=== PATIENT | female | born 1990 | race American Indian/Alaskan Native ===

== ENCOUNTER 2019-03-01 11:53 | Inpatient (IN) | payer OTHER ==
[2019-03-01 12:54] LABS: Bacteria,Urine 1+ /HPF (Negative); Bilirubin,Urine NEG (Negative); Blood,Urine NEG (Negative); Color,Urine Yellow (Yellow); Mucus,Urine FEW /HPF; Urobilinogen,Urine < 2.0 mg/dL (<2.0)
[2019-03-01] MEDS ORDERED: PEPCID IV NR (13:00)
[2019-03-01] MEDS ORDERED: ZOFRAN IV NR (13:00)
[2019-03-01 13:02] LABS: Amphetamine Screen,Urine PRESUMPTIVE NEGATIVE; Benzodiazepines Screen,Urine PRESUMPTIVE NEGATIVE; Cocaine Screen,Urine PRESUMPTIVE NEGATIVE; Methadone Screen,Urine PRESUMPTIVE NEGATIVE; Opiate Screen,Urine PRESUMPTIVE NEGATIVE
[2019-03-01] MEDS: LACTATED RINGERS 1,000 ML IV SCH ×2 (13:09→20:09)
[2019-03-01 13:28] LABS: Cannabinoid Screen,Urine PRESUMPTIVE POSITIVE
[2019-03-01] MEDS ORDERED: MORPHINE IV ONE ×2 (13:33→16:45)
[2019-03-01] MEDS ORDERED: MORPHINE ONE (17:06)
--- NOTE | 2019-03-01 17:09 | History and Physical Report ---
History of Present Illness Date of examination: 03/01/19 Date of admission: 03/01/19 12:22 Medications and Allergies Allergies Allergy/AdvReac Type Severity Reaction Status Date / Time No Known Allergies Allergy Verified 03/01/19 12:14 Active Meds: Active Medications Famotidine (Pepcid) 20 mg IV ONCE NR Stop: 03/01/19 18:00 Last Admin: 03/01/19 13:09 Dose: 20 mg Documented by: Lactated Ringer's (Lactated Ringers) 1,000 mls @ 125 mls/hr IV DIRECT CRISTIAN Last Admin: 03/01/19 13:09 Dose: 125 mls/hr Documented by: Ondansetron HCl (Zofran) 8 mg IV ONCE NR Stop: 03/01/19 18:00 Last Admin: 03/01/19 13:09 Dose: 8 mg Documented by: Exam - Constitutional Vitals: Temp Pulse Resp BP Pulse Ox 97.7 F 92 H 20 113/69 98 03/01/19 13:10 03/01/19 13:43 03/01/19 13:10 03/01/19 13:43 03/01/19 11:58 Results - Labs Labs: Laboratory Last Values Yellow (Yellow) 03/01/19 12:25 Clear (Clear) 03/01/19 12:25 5.0 (5.0-7.0) 03/01/19 12:25 Ur Specific [place] 1.021 (1.003-1.030) 03/01/19 12:25 30 mg/dl mg/dL (Negative) 03/01/19 12:25 Neg mg/dL (Negative) 03/01/19 12:25 80 mg/dL (Negative) 03/01/19 12:25 Neg (Negative) 03/01/19 12:25 Neg (Negative) 03/01/19 12:25 Neg (Negative) 03/01/19 12:25 < 2.0 mg/dL (<2.0) 03/01/19 12:25 Ur Leukocyte Esterase Neg (Negative) 03/01/19 12:25 1.0 /HPF (0.0-6.0) 03/01/19 12:25 2.0 /HPF (0.0-6.0) 03/01/19 12:25 U Epithel Cells (Auto) 1.0 /HPF (0-13.0) 03/01/19 12:25 1+ /HPF (Negative) 03/01/19 12:25 Few /HPF 03/01/19 12:25 Presumptive negative 03/01/19 12:25 Presumptive negative 03/01/19 12:25 Ur Barbiturates Screen Presumptive negative 03/01/19 12:25 Ur Phencyclidine Scrn Presumptive negative 03/01/19 12:25 Ur Amphetamines Screen Presumptive negative 03/01/19 12:25 U Benzodiazepines Scrn Presumptive negative 03/01/19 12:25 Presumptive negative 03/01/19 12:25 U Marijuana (THC) Screen Presumptive positive 03/01/19 12:25 Disclamer 03/01/19 12:25
--- NOTE | 2019-03-01 17:10 | Consultation ---
History of Present Illness - Reason for Consult Consult date: 03/01/19 Medical management Requesting physician: CRISTIANA VOGEL - History of Present Illness Patient has severe epigastric pain for 1 day.Associated with Nausea.Patient is 29 weeks .pain is 10/10 on scale of 1 to 10Sharp in nature No exacerbating or relieving factors,No fever or chills. Past History Past Medical History: No medical history Past Surgical History: No surgical history Social history: lives with family, full code Family history: hypertension Medications and Allergies Allergies Allergy/AdvReac Type Severity Reaction Status Date / Time No Known Allergies Allergy Verified 03/01/19 12:14 Active Meds: Active Medications Famotidine (Pepcid) 20 mg IV ONCE NR Stop: 03/01/19 18:00 Last Admin: 03/01/19 13:09 Dose: 20 mg Documented by: Lactated Ringer's (Lactated Ringers) 1,000 mls @ 125 mls/hr IV DIRECT CRISTIAN Last Admin: 03/01/19 13:09 Dose: 125 mls/hr Documented by: Ondansetron HCl (Zofran) 8 mg IV ONCE NR Stop: 03/01/19 18:00 Last Admin: 03/01/19 13:09 Dose: 8 mg Documented by: Review of Systems All systems: negative Gastrointestinal: abdominal pain, nausea Exam - Constitutional Vitals: Temp Pulse Resp BP Pulse Ox 97.7 F 92 H 20 113/69 98 03/01/19 13:10 03/01/19 13:43 03/01/19 13:10 03/01/19 13:43 03/01/19 11:58 General appearance: Present: no acute distress, mild distress, severe distress (Sec to pain in epigastric region), well-nourished - EENT Eyes: Present: PERRL ENT: hearing intact, clear oral mucosa - Neck Neck: Present: supple, normal ROM - Respiratory Respiratory effort: normal Respiratory: bilateral: CTA - Cardiovascular Heart rate: 78 Rhythm: regular Heart Sounds: Present: S1 & S2. Absent: rub, click - Extremities Extremities: no ischemia, pulses intact, pulses symmetrical, No edema Peripheral Pulses: within normal limits - Abdominal General gastrointestinal: Present: soft, non-tender, non-distended, normal bowel sounds Localized gastrointestinal: tender: epigastric periumbilical, guarding: epigastric periumbilical Female genitourinary: Present: normal - Rectal Rectal Exam: deferred - Integumentary Integumentary: Present: clear, warm, dry - Musculoskeletal Musculoskeletal: gait normal, strength equal bilaterally - Psychiatric Psychiatric: appropriate mood/affect, intact judgment & insight - Neurologic Neurologic: CNII-XII intact, moves all extremities Results - Labs CBC & Chem 7: 03/01/19 19:19 03/01/19 19:19 Labs: Short CBC 03/01/19 Range/Units 19:19 WBC 4.8 (4.5-11.0) K/mm3 Hgb 11.3 (10.1-14.3) gm/dl Hct 31.4 (30.3-42.9) % Plt Count 217 (140-440) K/mm3 BMP 03/01/19 19:19 Sodium 136 L Potassium 4.1 Chloride 103.1 Carbon Dioxide 13 L BUN 3 L Creatinine 0.4 L Glucose 56 L Calcium 8.5 Liver Function 03/01/19 Range/Units 19:19 Total Bilirubin 0.50 (0.1-1.2) mg/dL AST 22 (5-40) units/L ALT 6 L (7-56) units/L Alkaline Phosphatase 62 (35-129) units/L Albumin 3.1 L (3.9-5) g/dL Urine 03/01/19 Range/Units 12:25 Urine Color Yellow (Yellow) Urine pH 5.0 (5.0-7.0) Ur Specific [place] 1.021 (1.003-1.030) Urine Protein 30 mg/dl (Negative) mg/dL Urine Glucose (UA) Neg (Negative) mg/dL Assessment and Plan - Patient Problems (1) Acute gastritis Current Visit: Yes Status: Acute Qualifiers: Gastritis bleeding: without bleeding Plan to address problem: Patient initiated on IV Protonix and PO Carafate Upper Endoscopy if necessary Check Amylase and lipase to rule out Pancreatitis. (2) DVT prophylaxis Current Visit: Yes Status: Acute Plan to address problem: On Scd's
--- NOTE | 2019-03-01 18:34 | Ultrasound Report ---
US OB >= 14 weeks Fetus INDICATION / CLINICAL INFORMATION: well being. COMPARISON: None available. FINDINGS: Single, viable intrauterine in cephalic presentation, heart rate 138. Amniotic fluid volume is normal, with a fluid index of 12 cm. Placenta is right lateral and free of the cervical os. stomach, kidneys and bladder, diaphragm, four-chamber heart and three-vessel cord are identifie d and appear unremarkable. Biparietal diameter 6.9 cm, 27 weeks 4 days. His first 25.7 cm, 28 weeks 0 days. Abdominal circumference 23.7 cm, 28 weeks 0 days. Femur length 5.4 cm, 28 weeks 3 days. Estimated body weight 1182 g. Ultrasound gestational age 28 weeks 6 days. IMPRESSION: 1. Single intrauterine . No significant abnormalities identified. Signer Name: Tahir Duran MD Signed: 03/01/2019 6:30 PM Workstation Name: [id number]
[2019-03-01 19:56] LABS: Hematocrit 31.4 % (30.3-42.9); Hemoglobin 11.3 gm/dl (10.1-14.3); Mean Corpuscular HGB Conc 36 % (30-34); Mean Corpuscular Volume 87 fl (79-97); Platelet Count 217 K/mm3 (140-440); Red Cell Distribution Width 14.1 % (13.2-15.2)
[2019-03-01 20:20] LABS: Alanine Aminotransferase 6 units/L (7-56); Albumin 3.1 g/dL (3.9-5); BUN/Creatinine Ratio 8; Blood Urea Nitrogen 3 mg/dL (7-17); Calcium 8.5 mg/dL (8.4-10.2); Hemolysis Index 18
[2019-03-01] MEDS ORDERED: SODIUM CHLORIDE FLUSH SYRINGE 10 ML IV PRN (20:31)
[2019-03-01] MEDS ORDERED: MORPHINE IM ONE (20:41)
[2019-03-01] MEDS: CARAFATE PO SCH (20:50)
[2019-03-01] MEDS: PROTONIX IV SCH (21:04)
[2019-03-01] MEDS: NACL P/F VIAL (10 ML) IV PRN (21:04)
[2019-03-02] MEDS: NORCO 5/325 PO PRN ×2 (05:27→20:39)
[2019-03-02] MEDS: CARAFATE PO SCH ×4 (07:53→22:56)
[2019-03-02] MEDS ORDERED: ZOFRAN IV PRN (08:30)
[2019-03-02 08:46] LABS: Alanine Aminotransferase 9 units/L (7-56); Albumin 3.4 g/dL (3.9-5); BUN/Creatinine Ratio 6; Blood Urea Nitrogen 3 mg/dL (7-17); Calcium 8.6 mg/dL (8.4-10.2); Hemolysis Index 5
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
[2019-03-02] MEDS: PROTONIX IV SCH ×2 (10:25→22:56)
[2019-03-02] MEDS ORDERED: MIRACLE MIXTURE PO ONE (10:30)
[2019-03-02] MEDS: LACTATED RINGERS 1,000 ML IV SCH ×2 (10:39→18:56)
--- NOTE | 2019-03-02 12:54 | Progress Note ---
Assessment and Plan / Acute gastritis Patient initiated on IV Protonix and PO Carafate slightly elevated lipase cont iv fluid, start on liquid diet would consider consulting psych also / DVT prophylaxis On Scd's Subjective Date of service: 03/02/19 Interval history: Patient seen and examined Asking for iv pain medication Appears agitated States that her whole body is aching Objective - Constitutional Vitals: Vital Signs - 12hr 03/02/19 03/02/19 03/02/19 03:55 05:27 07:41 Temperature 98.7 F Pulse Rate 83 93 H Respiratory 18 20 Rate Blood Pressure 98/54 119/59 Blood Pressure [Left] 03/02/19 03/02/19 07:43 11:47 Temperature 97.1 F L 96.8 F L Pulse Rate 93 H 81 Respiratory 18 18 Rate Blood Pressure 97/52 Blood Pressure 119/59 97/52 [Left] General appearance: Present: well-nourished - EENT Eyes: PERRL, EOM intact ENT: hearing intact, clear oral mucosa Ears: bilateral: normal - Neck Neck: supple, normal ROM - Respiratory Respiratory effort: normal Respiratory: bilateral: CTA - Cardiovascular Rhythm: regular Heart Sounds: Present: S1 & S2. Absent: gallop, rub Extremities: pulses intact, No edema, normal color, Full ROM - Gastrointestinal General gastrointestinal: Present: normal bowel sounds - Genitourinary Female genitourinary: deferred - Integumentary Integumentary: clear, warm, dry - Musculoskeletal Musculoskeletal: 1, strength equal bilaterally - Neurologic Neurologic: moves all extremities - Psychiatric Psychiatric: agitated - Labs CBC & Chem 7: 03/01/19 19:19 03/02/19 07:43 Labs: Abnormal lab results 03/01/19 03/01/19 03/02/19 Range/Units 19: 19: 07:43 RBC 3.60 L (3.65-5.03) M/mm3 MCHC 36 H (30-34) % Sodium 136 L (137-145) mmol/L Carbon Dioxide 13 L (22-30) mmol/L BUN 3 L (7-17) mg/dL Creatinine 0.4 L (0.7-1.2) mg/dL Glucose 56 L (65-100) mg/dL ALT 6 L (7-56) units/L Albumin 3.1 L (3.9-5) g/dL Lipase 61 H (13-60) units/L // Range/Units 07:43 RBC (3.65-5.03) M/mm3 MCHC (30-34) % Sodium 134 L (137-145) mmol/L Carbon Dioxide 9 L* (22-30) mmol/L BUN 3 L (7-17) mg/dL Creatinine 0.5 L (0.7-1.2) mg/dL Glucose 57 L (65-100) mg/dL ALT (7-56) units/L Albumin 3.4 L (3.9-5) g/dL Lipase (13-60) units/L
[2019-03-02] MEDS ORDERED: PROVENTIL IH PRN (14:44)
[2019-03-02] MEDS: MORPHINE IV PRN ×3 (14:54→22:45)
[2019-03-02] MEDS ORDERED: MORPHINE IV ONE (16:00)
--- NOTE | 2019-03-02 16:38 | Gastroenterology Consultation ---
History of Present Illness - Reason for Consult Consult date: 03/02/19 Abd pain, N/V Requesting physician: CRISTIANA VOGEL - History of Present Illness This is a 28-year-old female, 27 weeks , for whom we are consulted for abdominal pain nausea vomiting She reports that the abdominal pain has been present for at least 2 years, however she reports that over the last week she has had severe increase in worsening of the pain. She reports the pain is severe, sharp, diffuse in the entire abdomen, can radiate to the right upper quadrant, associated with nausea and vomiting and diarrhea and fevers, slightly improved with opiate pain medication, also slightly improved with marijuana use, worse with not using marijuana and worse with eating. She reports the pain is constant and severe though it does have times when it is worse at times when it is a little bit better. She reports approximately 1 year ago had upper endoscopy and colonoscopy, she reports being told she had ulcers and colon polyps but I do not have copies of those records. Of note, the patient traveled to [place] to be with her mother, her 1-year-old child is still back home out of state with the child's father. She the patient reports that she stopped off at 2 separate hospitals on the trip from home to [place] due to the severity of her pain. She also reports vomiting blue Meds updated/reconciled/reviewed Past History Past Medical History: No medical history Past Surgical History: No surgical history Social history: single, other (marijuana). denies: smoking, alcohol abuse Family history: hypertension Medications and Allergies Allergies Allergy/AdvReac Type Severity Reaction Status Date / Time No Known Allergies Allergy Verified 03/01/19 12:14 Active Meds: Active Medications Acetaminophen/Hydrocodone Bitart ([place] 5/325) 1 each PO Q6H PRN PRN Reason: Pain, Moderate (4-6) Last Admin: 03/02/19 05:27 Dose: 1 each Documented by: Albuterol (Proventil) 2.5 mg IH Q4HRT PRN PRN Reason: Shortness Of Breath Last Admin: 03/02/19 15:36 Dose: 2.5 mg Documented by: Lactated Ringer's (Lactated Ringers) 1,000 mls @ 125 mls/hr IV DIRECT CRISTIAN Last Admin: 03/02/19 10:39 Dose: 125 mls/hr Documented by: Lidocaine HCl (Miracle Mixture) 15 ml PO TID [facility] Morphine Sulfate (Morphine) 1 mg IV Q3H PRN PRN Reason: Pain, Moderate (4-6) Last Admin: 03/02/19 14:54 Dose: 1 mg Documented by: Ondansetron HCl (Zofran) 4 mg IV Q4H PRN PRN Reason: Nausea And Vomiting Last Admin: 03/02/19 15:32 Dose: 4 mg Documented by: Pantoprazole Sodium (Protonix) 40 mg IV BID [facility] Last Admin: 03/02/19 10:25 Dose: 40 mg Documented by: Sodium Chloride (Nacl P/F Vial (10 Ml)) 10 ml IV PRN PRN PRN Reason: Protonix dilution Last Admin: 03/01/19 21:04 Dose: 10 ml Documented by: Sucralfate (Carafate) 1 gm PO ACHS [facility] Last Admin: 03/02/19 11:45 Dose: 1 gm Documented by: Review of Systems - Review of Systems All systems: negative (10 systems reviewed and neg except as above) Exam - Constitutional Vital Signs: Temp Pulse Resp BP Pulse Ox 96.8 F L 95 H 16 107/59 98 03/02/19 11:47 03/02/19 15:37 03/02/19 15:37 03/02/19 14:06 03/01/19 11:58 General appearance: other (constantly moving about on the bed in discomfort) - EENT Eyes: EOM intact ENT: hearing intact - Neck Neck: supple - Respiratory Respiratory effort: normal - Cardiovascular Rhythm: regular - Gastrointestinal General gastrointestinal: Present: soft, tender, normal bowel sounds - Integumentary Integumentary: Present: dry - Neurologic Neurological: alert and oriented x3 - Psychiatric Psychiatric: cooperative - Labs CBC & Chem 7: 03/01/19 19:19 03/02/19 07:43 Lab Results: Laboratory Results - last 24 hr 03/01/19 03/01/19 03/02/19 19:19 19:19 07:43 WBC 4.8 RBC 3.60 L Hgb 11.3 Hct 31.4 MCV 87 MCH 31 MCHC 36 H RDW 14.1 Plt Count 217 Sodium 136 L Potassium 4.1 Chloride 103.1 Carbon Dioxide 13 L Anion Gap 24 BUN 3 L Creatinine 0.4 L Estimated GFR > 60 BUN/Creatinine Ratio 8 Glucose 56 L Lactic Acid Calcium 8.5 Total Bilirubin 0.50 AST 22 ALT 6 L Alkaline Phosphatase 62 Total Protein 6.3 Albumin 3.1 L Albumin/Globulin Ratio 1.0 Amylase Lipase 61 H 03/02/19 03/02/19 07:43 09:34 WBC RBC Hgb Hct MCV MCH MCHC RDW Plt Count Sodium 134 L Potassium 3.9 Chloride 103.7 Carbon Dioxide 9 L* Anion Gap 25 BUN 3 L Creatinine 0.5 L Estimated GFR > 60 BUN/Creatinine Ratio 6 Glucose 57 L Lactic Acid 0.80 Calcium 8.6 Total Bilirubin 0.60 AST 27 ALT 9 Alkaline Phosphatase 73 Total Protein 7.1 Albumin 3.4 L Albumin/Globulin Ratio 0.9 Amylase 95 Lipase Assessment and Plan Continue PPI and Carafate Abdominal US Start full liquid diet Discussion: Differential diagnosis for the patient's symptoms includes gastritis, biliary, marijuana induced cyclic vomiting syndrome, withdrawal symptoms, functional abdominal pain less likely nephrolithiasis, Follow-up ultrasound results, trend LFTs, and continue maximal supportive care with PPI, Carafate, and antiemetics.. - Patient Problems (1) Generalized abdominal pain Current Visit: Yes Status: Acute (2) Generalized abdominal pain affecting Current Visit: Yes Status: Acute (3) Nausea & vomiting Current Visit: Yes Status: Acute
[2019-03-02] MEDS: MIRACLE MIXTURE PO SCH (16:50)
[2019-03-02] MEDS ORDERED: LACTATED RINGERS 1,000 ML IV ONE (17:42)
--- NOTE | 2019-03-02 21:02 | Ultrasound Report ---
ULTRASOUND ABDOMEN, COMPLETE INDICATION: abd pain. Epigastric pain COMPARISON: No relevant prior imaging study available. FINDINGS: Pancreas: No significant abnormality. Abdominal Aorta: No significant abnormality. IVC: No significant abnormality. Liver: No significant abnormality. Normal hepatopedal blood flow in the main portal vein. Gallbladder: Removed. Bile ducts: No significant abnormality. Common bile duct measures 9 mm. Kidneys: Right: No significant abnormality. Left: No significant abnormality. Spleen: No significant abnormality. Free fluid: None. Additional Findings: None. IMPRESSION: 1. No sonographic abnormality of the abdomen. The common bile duct measures 9 mm in diameter, probabl y secondary to prior cholecystectomy Signer Name: Frankie Singh MD Signed: 03/02/2019 8:58 PM Workstation Name: [id number]
[2019-03-02] MEDS: NACL P/F VIAL (10 ML) IV PRN (22:56)
[2019-03-03] MEDS: MORPHINE IV PRN ×3 (01:20→14:55)
[2019-03-03] MEDS: NORCO 5/325 PO PRN ×4 (04:02→22:29)
[2019-03-03] MEDS: CARAFATE PO SCH ×4 (08:11→22:26)
[2019-03-03] MEDS: MIRACLE MIXTURE PO SCH ×3 (08:42→22:26)
[2019-03-03] MEDS: PROTONIX IV SCH ×2 (10:20→22:27)
[2019-03-03] MEDS: LACTATED RINGERS 1,000 ML IV SCH ×2 (11:58→22:37)
--- NOTE | 2019-03-03 13:08 | Progress Note ---
Assessment and Plan / Acute gastritis cont on IV Protonix and PO Carafate cont iv fluid, advance diet as tolerated would avoid narcotics / DVT prophylaxis On Scd's Subjective Date of service: 03/03/19 Interval history: Patient seen and examined Appears much clam today States that she is much better today, tolerated little jello Objective - Exam Narrative Exam: General appearance: Present: well-nourished - EENT Eyes: PERRL, EOM intact ENT: hearing intact, clear oral mucosa Ears: bilateral: normal - Neck Neck: supple, normal ROM - Respiratory Respiratory effort: normal Respiratory: bilateral: CTA - Cardiovascular Rhythm: regular Heart Sounds: Present: S1 & S2. Absent: gallop, rub Extremities: pulses intact, No edema, normal color, Full ROM - Gastrointestinal General gastrointestinal: Present: normal bowel sounds - Genitourinary Female genitourinary: deferred - Integumentary Integumentary: clear, warm, dry - Musculoskeletal Musculoskeletal: 1, strength equal bilaterally - Neurologic Neurologic: moves all extremities - Psychiatric Psychiatric: cooperative - Constitutional Vitals: Vital Signs - 12hr 03/03/19 03/03/19 03/03/19 08:09 08:10 08:23 Temperature 97.6 F Pulse Rate 82 82 Respiratory 20 20 Rate Blood Pressure 112/67 Blood Pressure 112/67 [Left] O2 Sat by Pulse Oximetry 03/03/19 03/03/19 12:00 12:15 Temperature 98 F Pulse Rate 74 74 Respiratory 20 Rate Blood Pressure 122/73 Blood Pressure 122/73 [Left] O2 Sat by Pulse 99 Oximetry - Labs CBC & Chem 7: 03/01/19 19:19 03/04/19 06:38
[2019-03-03 14:20] LABS: BUN/Creatinine Ratio 4; Blood Urea Nitrogen 2 mg/dL (7-17); Calcium 8.4 mg/dL (8.4-10.2); Hemolysis Index 2
--- NOTE | 2019-03-03 15:08 | Progress Note ---
Assessment and Plan A: IUP at 27w3d HD3 for abdominal pain/burning on Protonix and Carafate Insufficient care Internal Medicine and GI consults appreciated P: Continue current management plan Subjective - Subjective Date of service: 03/03/19 Principal diagnosis: IUP at 27 wks, abdominal pain, h/o ulcers, GERD Interval history: Pt reports feeling "a little" better today. She tolerated two bites of Jello without emesis. She was no obstetric complaints today. Patient reports: movement normal, no new complaints Objective - Vital Signs Vital Signs: Vital Signs - 12hr 03/03/19 03/03/19 03/03/19 08:09 08:10 08:23 Temperature 97.6 F Pulse Rate 82 82 Respiratory 20 20 Rate Blood Pressure 112/67 Blood Pressure 112/67 [Left] O2 Sat by Pulse Oximetry 03/03/19 03/03/19 12:00 12:15 Temperature 98 F Pulse Rate 74 74 Respiratory 20 Rate Blood Pressure 122/73 Blood Pressure 122/73 [Left] O2 Sat by Pulse 99 Oximetry - Exam Breasts: deferred Cardiovascular: Regular rate Lungs: Clear to auscultation Abdomen: Present: soft (gravid) Uterus: Present: normal (gravid ) FHR: auscultation normal Uterine Contraction Pattern: Absent Uterine Tone Measurement Phase: Resting Extremities: normal - Labs Labs: Abnormal Labs 03/01/19 03/01/19 03/02/19 19:19 19:19 07:43 RBC 3.60 L MCHC 36 H Sodium 136 L Carbon Dioxide 13 L BUN 3 L Creatinine 0.4 L Glucose 56 L ALT 6 L Albumin 3.1 L Lipase 61 H 03/02/19 03/03/19 07:43 13:41 RBC MCHC Sodium 134 L 132 L Carbon Dioxide 9 L* 11 L BUN 3 L 2 L Creatinine 0.5 L 0.5 L Glucose 57 L ALT Albumin 3.4 L Lipase Laboratory Results - last 24 hr 03/03/19 13:41 Sodium 132 L Potassium 3.8 Chloride 104.1 Carbon Dioxide 11 L Anion Gap 21 BUN 2 L Creatinine 0.5 L Estimated GFR > 60 BUN/Creatinine Ratio 4 Glucose 79 Calcium 8.4
--- NOTE | 2019-03-03 17:59 | Gastroenterology Progress Note ---
Assessment and Plan H/o gastric ulcer RUQ pain Nausea/vomiting - ddx including gastritis, marijuana induced cyclic vomiting syndrome, withdrawal symptoms, functional pain. - normal LFTs. - currently on PPI, carafate, and antiemetics. - US with normal CBD, s/p cck. Rec - avoid narcotics. - continue with PPI and carafate. - no plans for endoscopy. - advance diet as tolerated. - monitor labs. - Patient Problems (1) Nausea & vomiting Current Visit: Yes Status: Acute Subjective Date of service: 03/03/19 Principal diagnosis: IUP at 27 wks, abdominal pain, h/o ulcers, GERD Interval history: Reports having jello today and keeping it down. Reports she has burning with eating. Requests for pain medication. No BM over 2 days. Objective - Constitutional Vitals: Temp Pulse Resp BP Pulse Ox 97.9 F 90 20 122/69 99 03/03/19 16:00 03/03/19 16:00 03/03/19 16:00 03/03/19 16:00 03/03/19 12:15 General appearance: no acute distress - EENT Eyes: EOM intact ENT: hearing intact - Neck Neck: supple - Respiratory Respiratory effort: normal Respiratory: bilateral: CTA - Cardiovascular Rhythm: regular Heart Sounds: Present: S1 & S2 - Gastrointestinal General gastrointestinal: Present: soft, non-tender, normal bowel sounds, other (Gravid abdomen) - Integumentary Integumentary: Present: clear, warm - Neurologic Neurological: alert and oriented x3 - Labs CBC & Chem 7: 03/01/19 19:19 03/03/19 13:41 Labs: Laboratory Results - last 24 hr 03/03/19 03/03/19 13:41 Unknown Sodium 132 L Potassium 3.8 Chloride 104.1 Carbon Dioxide 11 L Anion Gap 21 BUN 2 L Creatinine 0.5 L Estimated GFR > 60 BUN/Creatinine Ratio 4 Glucose 79 Calcium 8.4 Urine Ketones 80
[2019-03-03] MEDS: NACL P/F VIAL (10 ML) IV PRN (22:28)
[2019-03-04] MEDS ORDERED: PITOCin/NS 20 UNIT/1000ML DRIP 0 MILLIUNITS/0 ML BAG IV ONE (00:38)
[2019-03-04] MEDS ORDERED: BRETHINE SUB-Q ONE (03:12)
[2019-03-04 07:30] LABS: Alanine Aminotransferase 15 units/L (7-56); Albumin 2.9 g/dL (3.9-5); Calcium 8.3 mg/dL (8.4-10.2); Hemolysis Index 0
[2019-03-04] MEDS: CARAFATE PO SCH ×4 (07:36→22:14)
[2019-03-04 07:45] LABS: BUN/Creatinine Ratio 3; Blood Urea Nitrogen 1 mg/dL (7-17)
[2019-03-04] MEDS ORDERED: K-DUR PO NR (07:49)
[2019-03-04] MEDS: MIRACLE MIXTURE PO SCH ×4 (08:05→22:13)
[2019-03-04] MEDS: PROTONIX IV SCH ×2 (10:13→22:14)
[2019-03-04] MEDS: NACL P/F VIAL (10 ML) IV PRN ×2 (10:15→22:14)
--- NOTE | 2019-03-04 10:15 | Progress Note ---
Assessment and Plan A: IUP at 27w4d HD3 for abdominal pain/burning on Protonix and Carafate Insufficient care Internal Medicine and GI consults appreciated P: Continue current management plan Discontinue Morphine Subjective - Subjective Date of service: 03/04/19 Principal diagnosis: IUP at 27 wks, abdominal pain, h/o ulcers, GERD Interval history: Pt sleeping and not talking much this morning. Episode of contractions last night that responded to IVF and terbutaline. Pt checked by RN and noted to be 1 cm before FFN was collected. Patient reports: movement normal, contractions (per HPI ), no new complaints Objective - Vital Signs Vital Signs: Vital Signs - 12hr 03/04/19 03/04/19 02:02 08:30 Temperature 97.4 F L Pulse Rate 85 95 H Respiratory 20 Rate Blood Pressure 111/75 103/64 Blood Pressure 103/64 [Left] - Exam Breasts: deferred Cardiovascular: Regular rate Lungs: Clear to auscultation Abdomen: Present: soft (gravid ) Uterus: Present: normal (gravid ) FHR: auscultation normal Uterine Contraction Pattern: Absent Uterine Tone Measurement Phase: Resting Extremities: normal - Labs Labs: Abnormal Labs 03/01/19 03/01/19 03/02/19 19:19 19:19 07:43 RBC 3.60 L MCHC 36 H Sodium 136 L Potassium Carbon Dioxide 13 L BUN 3 L Creatinine 0.4 L Glucose 56 L Calcium ALT 6 L Total Protein Albumin 3.1 L Lipase 61 H 03/02/19 03/03/19 03/04/19 07:43 13:41 06:38 RBC MCHC Sodium 134 L 132 L 135 L Potassium 3.0 L D Carbon Dioxide 9 L* 11 L 17 L BUN 3 L 2 L 1 L Creatinine 0.5 L 0.5 L 0.4 L Glucose 57 L 141 H Calcium 8.3 L ALT Total Protein 5.8 L Albumin 3.4 L 2.9 L Lipase Laboratory Results - last 24 hr 03/03/19 03/03/19 03/04/19 13:41 Unknown 06:38 Sodium 132 L 135 L Potassium 3.8 3.0 L D Chloride 104.1 105.4 Carbon Dioxide 11 L 17 L Anion Gap 21 16 BUN 2 L 1 L Creatinine 0.5 L 0.4 L Estimated GFR > 60 > 60 BUN/Creatinine Ratio 4 3 Glucose 79 141 H Calcium 8.4 8.3 L Total Bilirubin 0.20 AST 29 ALT 15 Alkaline Phosphatase 65 Total Protein 5.8 L Albumin 2.9 L Albumin/Globulin Ratio 1.0 Urine Ketones 80
[2019-03-04] MEDS: LACTATED RINGERS 1,000 ML IV SCH (10:29)
[2019-03-04] MEDS ORDERED: K-DUR PO ONE (11:08)
[2019-03-04] MEDS ORDERED: MORPHINE IV ONE (11:55)
--- NOTE | 2019-03-04 12:10 | Ultrasound Report ---
Ultrasound obstetric limited ULTRASOUND BIOPHYSICAL PROFILE INDICATION / CLINICAL INFORMATION: well being, 28 wks, gastritis. COMPARISON: None available. FINDINGS: BREATHING MOVEMENT = 2 GROSS BODY MOVEMENT = 2 TONE = 2 QUALITATIVE AMNIOTIC FLUID VOLUME = 2 TOTAL BIOPHYSICAL SCORE = 8/8 The placenta is anterior. The cervical length is 4.2 cm. PRESENTATION: Cephalic. HEART RATE (beats per minute): 147 IMPRESSION: 1. biophysical profile = 8/8 2. Cervical length 4.2 cm. Single living intrauterine . Signer Name: Frankie Singh MD Signed: 03/04/2019 12:05 PM Workstation Name: [id number]
--- NOTE | 2019-03-04 12:10 | Progress Note ---
Assessment and Plan / Acute gastritis cont on IV Protonix and PO Carafate cont iv fluid, advance diet as tolerated would avoid narcotics no plan for endoscopy / Hypokalemia, replete /DVT prophylaxis On Scd's Subjective Date of service: 03/04/19 Principal diagnosis: IUP at 27 wks, abdominal pain, h/o ulcers, GERD Interval history: Patient seen and examined Appears much clam, tolerating small amount diet still asking for iv pain meds Objective - Exam Narrative Exam: General appearance: Present: well-nourished - EENT Eyes: PERRL, EOM intact ENT: hearing intact, clear oral mucosa Ears: bilateral: normal - Neck Neck: supple, normal ROM - Respiratory Respiratory effort: normal Respiratory: bilateral: CTA - Cardiovascular Rhythm: regular Heart Sounds: Present: S1 & S2. Absent: gallop, rub Extremities: pulses intact, No edema, normal color, Full ROM - Gastrointestinal General gastrointestinal: Present: normal bowel sounds - Genitourinary Female genitourinary: deferred - Integumentary Integumentary: clear, warm, dry - Musculoskeletal Musculoskeletal: 1, strength equal bilaterally - Neurologic Neurologic: moves all extremities - Psychiatric Psychiatric: cooperative - Constitutional Vitals: Vital Signs - 12hr 03/04/19 03/04/19 03/04/19 02:02 08:30 11:39 Temperature 97.4 F L Pulse Rate 85 95 H 88 Respiratory 20 Rate Blood Pressure 111/75 103/64 109/72 Blood Pressure 103/64 [Left] 03/04/19 12:05 Temperature Pulse Rate Respiratory 20 Rate Blood Pressure Blood Pressure [Left] - Labs CBC & Chem 7: 03/05/19 11:12 03/05/19 04:35 Labs: Abnormal lab results 03/03/19 03/04/19 Range/Units 13:41 06:38 Sodium 132 L 135 L (137-145) mmol/L Potassium 3.0 L D (3.6-5.0) mmol/L Carbon Dioxide 11 L 17 L (22-30) mmol/L BUN 2 L 1 L (7-17) mg/dL Creatinine 0.5 L 0.4 L (0.7-1.2) mg/dL Glucose 141 H (65-100) mg/dL Calcium 8.3 L (8.4-10.2) mg/dL Total Protein 5.8 L (6.3-8.2) g/dL Albumin 2.9 L (3.9-5) g/dL
[2019-03-04] MEDS: NORCO 5/325 PO PRN (15:08)
--- NOTE | 2019-03-04 15:34 | Gastroenterology Progress Note ---
Assessment and Plan H/o gastric ulcer RUQ pain Nausea/vomiting - ddx including gastritis, marijuana induced cyclic vomiting syndrome, withdrawal symptoms, functional pain. - normal LFTs. - currently on PPI, carafate, and antiemetics. - US with normal CBD, s/p cck. - clinically improving. wants to eat. Rec - avoid narcotics. - continue with PPI and carafate. - no plans for endoscopy. - advance diet as tolerated. switch to soft diet. - will sign off at this time. Please call with questions. - Patient Problems (1) Nausea & vomiting Current Visit: Yes Status: Acute Subjective Date of service: 03/04/19 Principal diagnosis: IUP at 27 wks, abdominal pain, h/o ulcers, GERD Interval history: Patient reports keep liquids down without nausea. She had small amount of emesis this morning. Abdominal pain improving. She is having contractions inconsistent. Wants to eat regular food. Objective - Constitutional Vitals: Temp Pulse Resp BP Pulse Ox 97.9 F 88 20 109/72 99 03/04/19 12:45 03/04/19 11:39 03/04/19 12:05 03/04/19 11:39 03/03/19 12:15 General appearance: no acute distress - EENT Eyes: EOM intact ENT: hearing intact - Neck Neck: supple - Respiratory Respiratory: bilateral: CTA - Cardiovascular Rhythm: regular Heart Sounds: Present: S1 & S2 - Gastrointestinal General gastrointestinal: Present: soft, non-tender, other (gravid abdomen) - Integumentary Integumentary: Present: clear, warm - Neurologic Neurological: alert and oriented x3 - Labs CBC & Chem 7: 03/01/19 19:19 03/04/19 06:38 Labs: Laboratory Results - last 24 hr 03/03/19 03/04/19 Unknown 06:38 Sodium 135 L Potassium 3.0 L D Chloride 105.4 Carbon Dioxide 17 L Anion Gap 16 BUN 1 L Creatinine 0.4 L Estimated GFR > 60 BUN/Creatinine Ratio 3 Glucose 141 H Calcium 8.3 L Total Bilirubin 0.20 AST 29 ALT 15 Alkaline Phosphatase 65 Total Protein 5.8 L Albumin 2.9 L Albumin/Globulin Ratio 1.0 Urine Ketones 80
[2019-03-05] MEDS: NORCO 5/325 PO PRN ×3 (03:01→23:53)
[2019-03-05 05:17] LABS: Alanine Aminotransferase 18 units/L (7-56); Albumin 2.7 g/dL (3.9-5); Calcium 7.9 mg/dL (8.4-10.2); Hemolysis Index 0
[2019-03-05 05:24] LABS: BUN/Creatinine Ratio 3; Blood Urea Nitrogen < 1 mg/dL (7-17)
[2019-03-05] MEDS: CARAFATE PO SCH ×4 (09:47→21:23)
[2019-03-05] MEDS: MIRACLE MIXTURE PO SCH ×3 (09:48→21:23)
[2019-03-05] MEDS: PROTONIX IV SCH ×2 (09:49→21:24)
--- NOTE | 2019-03-05 10:47 | Progress Note ---
Assessment and Plan A: IUP at 27w5d HD3 for abdominal pain/burning on Protonix and Carafate Insufficient care Internal Medicine and GI consults appreciated P: Continue current management plan Ensure pt has access to medications outpatient Subjective - Subjective Date of service: 03/05/19 Principal diagnosis: IUP at 27 wks, abdominal pain, h/o ulcers, GERD Interval history: Pt feeling much better today and was able to eat two apples yesterday without emesis. She reports contractions for the past 20 minutes and has an irritability pattern on tocometry. Patient reports: movement normal, contractions (per HPI ), no new complaints, no loss of fluid, no vaginal bleeding Objective - Exam Breasts: deferred Cardiovascular: Regular rate Lungs: Clear to auscultation Abdomen: Present: soft (gravid ) FHR: auscultation normal Uterine Contraction Monitor Mode: External Uterine Contraction Pattern: Irregular Uterine Tone Measurement Phase: Resting Uterine Contraction Intensity: Mild Extremities: normal - Labs Labs: Abnormal Labs 03/01/19 03/01/19 03/02/19 19:19 19:19 07:43 RBC 3.60 L MCHC 36 H Sodium 136 L Potassium Carbon Dioxide 13 L BUN 3 L Creatinine 0.4 L Glucose 56 L Calcium ALT 6 L Total Protein Albumin 3.1 L Lipase 61 H 03/02/19 03/03/19 03/04/19 07:43 13:41 06:38 RBC MCHC Sodium 134 L 132 L 135 L Potassium 3.0 L D Carbon Dioxide 9 L* 11 L 17 L BUN 3 L 2 L 1 L Creatinine 0.5 L 0.5 L 0.4 L Glucose 57 L 141 H Calcium 8.3 L ALT Total Protein 5.8 L Albumin 3.4 L 2.9 L Lipase 03/05/19 04:35 RBC MCHC Sodium Potassium 3.2 L Carbon Dioxide BUN < 1 L Creatinine 0.4 L Glucose Calcium 7.9 L ALT Total Protein 5.4 L Albumin 2.7 L Lipase Laboratory Results - last 24 hr 03/05/19 04:35 Sodium 138 Potassium 3.2 L Chloride 104.2 Carbon Dioxide 22 Anion Gap 15 BUN < 1 L Creatinine 0.4 L Estimated GFR > 60 BUN/Creatinine Ratio 3 Glucose 89 Calcium 7.9 L Total Bilirubin < 0.20 AST 30 ALT 18 Alkaline Phosphatase 62 Total Protein 5.4 L Albumin 2.7 L Albumin/Globulin Ratio 1.0 - Results US- obstetric: report reviewed
[2019-03-05 11:50] LABS: Hematocrit 28.7 % (30.3-42.9); Hemoglobin 10.3 gm/dl (10.1-14.3); Mean Corpuscular HGB Conc 36 % (30-34); Mean Corpuscular Volume 85 fl (79-97); Platelet Count 185 K/mm3 (140-440); Red Blood Count 3.37 M/mm3 (3.65-5.03); Red Cell Distribution Width 13.9 % (13.2-15.2)
[2019-03-05] MEDS: LACTATED RINGERS 1,000 ML IV SCH ×2 (12:09→19:46)
--- NOTE | 2019-03-05 12:12 | Progress Note ---
Assessment and Plan / Acute gastritis cont on IV Protonix and PO Carafate cont iv fluid, advance diet as tolerated would avoid narcotics no plan for endoscopy / Hypokalemia, replete /DVT prophylaxis On Scd's Subjective Date of service: 03/05/19 Principal diagnosis: IUP at 27 wks, abdominal pain, h/o ulcers, GERD Interval history: Patient seen and examined Appears much clam, states that she is eating apples Objective - Exam Narrative Exam: General appearance: Present: well-nourished - EENT Eyes: PERRL, EOM intact ENT: hearing intact, clear oral mucosa Ears: bilateral: normal - Neck Neck: supple, normal ROM - Respiratory Respiratory effort: normal Respiratory: bilateral: CTA - Cardiovascular Rhythm: regular Heart Sounds: Present: S1 & S2. Absent: gallop, rub Extremities: pulses intact, No edema, normal color, Full ROM - Gastrointestinal General gastrointestinal: Present: normal bowel sounds - Genitourinary Female genitourinary: deferred - Integumentary Integumentary: clear, warm, dry - Musculoskeletal Musculoskeletal: 1, strength equal bilaterally - Neurologic Neurologic: moves all extremities - Psychiatric Psychiatric: cooperative - Labs CBC & Chem 7: 03/05/19 11:12 03/05/19 11:12 Labs: Abnormal lab results 03/05/19 03/05/19 Range/Units 04:35 11:12 WBC 3.4 L (4.5-11.0) K/mm3 RBC 3.37 L (3.65-5.03) M/mm3 Hct 28.7 L (30.3-42.9) % MCHC 36 H (30-34) % Potassium 3.2 L (3.6-5.0) mmol/L BUN < 1 L (7-17) mg/dL Creatinine 0.4 L (0.7-1.2) mg/dL Calcium 7.9 L (8.4-10.2) mg/dL Total Protein 5.4 L (6.3-8.2) g/dL Albumin 2.7 L (3.9-5) g/dL
[2019-03-05 12:13] LABS: Hemolysis Index 0
[2019-03-05] MEDS: CELESTONE SOLUSPAN IM SCH (12:17)
[2019-03-05 12:35] LABS: BUN/Creatinine Ratio 3; Blood Urea Nitrogen < 1 mg/dL (7-17)
[2019-03-05] MEDS: K-DUR PO SCH (13:00)
[2019-03-05] MEDS ORDERED: MORPHINE IV ONE (19:07)
[2019-03-05] MEDS: NACL P/F VIAL (10 ML) IV PRN (21:24)
[2019-03-06] MEDS: NORCO 5/325 PO PRN (05:31)
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
[2019-03-06 08:49] LABS: BUN/Creatinine Ratio 8; Blood Urea Nitrogen 3 mg/dL (7-17); Calcium 8.4 mg/dL (8.4-10.2); Hemolysis Index 2
[2019-03-06] MEDS: MIRACLE MIXTURE PO SCH (10:20)
[2019-03-06] MEDS: PROTONIX IV SCH (10:21)
[2019-03-06] MEDS: CARAFATE PO SCH ×2 (10:21→15:13)
[2019-03-06] MEDS: NACL P/F VIAL (10 ML) IV PRN (10:40)
[2019-03-06] MEDS: K-DUR PO SCH (11:15)
--- NOTE | 2019-03-06 13:19 | Discharge Summary ---
Providers - Providers Date of Admission: 03/01/19 12:22 Date of discharge: 03/06/19 Attending physician: CRISTIANA VOGEL MD 03/01/19 14:54 Consult to Case Management [CONS] Routine Services Needed at Discharge: Waiter/Waitress Cabin Class Notified:: Edward Was contact made?: Yes If yes, spoke with:: Edward Time called:: 14:45 03/01/19 14:55 Consult to Physician [CONS] Routine Comment: Consulting Provider: ELIZ WEBBER Physician Instructions: Consult for GI complaint Reason For Exam: GI/Ulcers 03/02/19 09:49 Consult to Dietitian/Nutrition [CONS] Routine Physician Instructions: Reason For Exam: anorexia lost 10 pounds in one week, 27 w Reason for Consult: Malnutrition 03/02/19 14:31 Consult to Physician [CONS] Routine Comment: Consulting Provider: DEBRA BLANTON Physician Instructions: Reason For Exam: h/o ulcers, gastric burning, 27 wks 03/06/19 07:34 Consult to Case Management [CONS] Stat Services Needed at Discharge: Waiter/Waitress Cabin Class Notified:: social service Phone number called:: [phone] Was contact made?: No Additional Physician Instructions: patient is with poor care will need meds that may be more than she can afford. Please assist Primary care physician: CRISTIANA VOGEL MD Hospitalization Reason for admission: other (abdominal pain ) Hospital course: Patient admitted for severe abdominal pain and burning. She was evalauated by IM and GI. patient initiated on carafat and protonix which has allowed her to eat. She has tolerated her diet >2 days. Will discharge home in stable condition and f/u next week with MFM, GI and [facility]. student services rep asssited with medication Protonix 7 dollars and Carafat 30 dollars. Patient doing well. Condition at discharge: Good Disposition: DC-01 TO HOME OR SELFCARE Plan - Discharge Medications Prescriptions: Sucralfate [Carafate] 1 gm PO ACHS #30 udc Pantoprazole [Protonix] 40 mg PO BID #30 tablet - Provider Discharge Summary Additional instructions: [] Smoking cessation referral if applicable(refer to patient education folder for contact #) [] Refer to [facility]'s [facility] Booklet Call your doctor immediately for: * Fever > 100.5 * Heavy vaginal bleeding ( >1 pad per hour) * Severe persistent headache * Shortness of breath * Reddened, hot, painful area to leg or breast * Drainage or odor from incision. * Keep incision clean and dry at all times and follow doctor's instructions regarding bathing/showering - Follow up plan Follow up: CRISTIANA VOGEL MD [Primary Care Provider] - 7 Days
[2019-03-06] MEDS: CELESTONE SOLUSPAN IM SCH (13:24)
--- NOTE | 2019-03-06 15:05 | Ultrasound Report ---
ULTRASOUND BIOPHYSICAL PROFILE ULTRASOUND OB LIMITED INDICATION: well being TECHNIQUE: Transabdominal ultrasound imaging. COMPARISON: 03/04/2019 FINDINGS: breathing movement = 2 Gross body movement = 2 tone = 2 Qualitative amniotic fluid volume = 2 Total biophysical score = 8/8 Amniotic fluid index is 14.9 cm. Presentation is cephalic. heart rate is 149 beats per minute. IMPRESSION: biophysical profile equals 8/8. No acute abnormality is detected. Signer Name: Gómez Obando Jr, MD Signed: 03/06/2019 3:00 PM Workstation Name: [id number]
[2019-03-06 15:19] VITALS: BP 107/56
--- NOTE | 2019-03-06 17:04 | Progress Note ---
Assessment and Plan / Acute gastritis, improved cont on Protonix and PO Carafate cont iv fluid, advance diet as tolerated would avoid narcotics no plan for endoscopy / Hypokalemia, repleted, stable now /DVT prophylaxis On Scd's Subjective Date of service: 03/06/19 Principal diagnosis: IUP at 27 wks, abdominal pain, h/o ulcers, GERD Interval history: Patient seen and examined Appears much clam, states that she is tolerating diet Objective - Exam Narrative Exam: General appearance: Present: well-nourished - EENT Eyes: PERRL, EOM intact ENT: hearing intact, clear oral mucosa Ears: bilateral: normal - Neck Neck: supple, normal ROM - Respiratory Respiratory effort: normal Respiratory: bilateral: CTA - Cardiovascular Rhythm: regular Heart Sounds: Present: S1 & S2. Absent: gallop, rub Extremities: pulses intact, No edema, normal color, Full ROM - Gastrointestinal General gastrointestinal: Present: normal bowel sounds - Genitourinary Female genitourinary: deferred - Integumentary Integumentary: clear, warm, dry - Musculoskeletal Musculoskeletal: 1, strength equal bilaterally - Neurologic Neurologic: moves all extremities - Psychiatric Psychiatric: cooperative - Constitutional Vitals: Vital Signs - 12hr 03/06/19 03/06/19 03/06/19 06:31 07:45 07:59 Temperature 98.2 F Pulse Rate 88 Respiratory 18 12 Rate Blood Pressure 87/50 Blood Pressure [Left] 03/06/19 03/06/19 12:25 15:06 Temperature 98.9 F 98.7 F Pulse Rate 95 H Respiratory 16 16 Rate Blood Pressure 108/61 Blood Pressure 107/56 [Left] - Labs CBC & Chem 7: 03/05/19 11:12 03/06/19 08:10 Labs: Abnormal lab results 03/06/19 Range/Units 08:10 BUN 3 L (7-17) mg/dL Creatinine 0.4 L (0.7-1.2) mg/dL Glucose 131 H (65-100) mg/dL
[2019-03-06] MEDS ORDERED: PROTONIX PO SCH (22:00)
== END 2019-03-06 15:15 | disposition home or self-care (01) | DRG 833 ==
LOC: TRG 11:53 → LD 12:18 → TRG 12:22
PROVIDERS: ADMIT Obstetrics & Gynecology; ATTEND Obstetrics & Gynecology
DX: O99.613 Diseases of the digestive system complicating pregnancy, third trimester (principal); Z3A.29 29 weeks gestation of pregnancy; K29.00 Acute gastritis without bleeding; E87.6 Hypokalemia; O99.283 Endocrine, nutritional and metabolic diseases complicating pregnancy, third trimester; Z82.49 Family history of ischemic heart disease and other diseases of the circulatory system
CPT/HCPCS: 36415; 76700; 76805; 76815; 76819; 80048; 80053; 80307; 81001; 82010; 82140; 82150; 83690; 85027; 86850; 86900; 86901; 87040; 94640; G0378; C9113; J0702; J2270; J2405; J2590; J7120